=== PATIENT | male | born 1995 | race Caucasian/White ===

== ENCOUNTER 2022-05-04 22:02 | Emergency (ER) | payer SELFPAY ==
[~2022-05-04] VITALS: Ht 180.3 cm; Wt 81.8 kg
[~2022-05-04 22:02] MED LIST: ADDERALL XR25 MG PO
[2022-05-04 22:47] VITALS: BP 132/78; PULSE 76
== END 2022-05-04 22:47 | disposition home or self-care (01) ==
LOC: COL.ER 22:02
DX: R53.1 Weakness (principal); Z59.01 Sheltered homelessness; Z28.310 Unvaccinated for COVID-19